=== PATIENT | male | born 1995 | race Caucasian/White ===

== ENCOUNTER 2020-04-02 04:26 | Emergency (ER) | payer OTHER, SELFPAY ==
--- NOTE | 2020-04-02 04:35 | ED.GENADULT ---
HPI - General Adult General Chief complaint: Nausea/Vomiting/Diarrhea Stated complaint: n/v x 24 hours Time Seen by Provider: 04/02/20 04:28 Source: RN notes reviewed History of Present Illness HPI narrative: Patient presents to the emergency department from home for nausea vomiting. Patient states he has been having persistent nausea vomiting for the past 24 hours he states he has been having nausea and vomiting in the mornings for the past 1 week. He denies having diarrhea he denies any fevers or chills chest pain shortness of breath abdominal pain or any other symptoms. States he did have a history as a child of having frequent nausea vomiting Review of Systems Review of Systems: Narrative: Gen.: Denies fevers or chills ENT: Denies congestion Respiratory: Denies shortness of breath or cough CV: Denies chest pain or palpitations GI: See HPI denies burning, urgency, frequency or hematuria Musculoskeletal: Denies back pain or muscle pain Neuro: Denies numbness, tingling, weakness or focal weakness Skin: Denies rash Except as documented, all other systems reviewed and negative [facility] Past Medical History Medical History (Updated 04/02/20 @ 06:44 by Jeronimo Moreno DO) Patient denies significant medical history Social History Social History (Updated 04/02/20 @ 04:36 by Jeronimo Moreno DO) Substance use type: marijuana Exam Narrative: Exam Narrative: APPEARANCE: No acute distress, nontoxic, resting in bed EYES: EOMI HEENT: Normocephalic, atraumatic, OMM RESPIRATORY: No respiratory distress Clear to auscultation bilaterally with no rhonchi wheezing or rales. CARDIOVASCULAR: Regular rate and rhythm without murmurs rubs or gallops. ABDOMINAL: Soft, nontender, nondistended, no rebound or guarding MUSCULOSKELETAl: Moves all extremities. No clubbing, cyanosis or edema. NEURO: Awake and alert. Following commands, speech normal, no focal deficits SKIN:: Warm, dry. No rashes lesions or abrasions PSYCHIATRIC: Normal affect/mood, Course Course Emergency Course: Patient feeling much better this time able to eat and drink in the ED with no emesis Patient states that they are feeling much better at this time. Repeat abdominal exam shows the patient's abdomen to be soft and nontender. Discussed with patient results of workup and diagnosis. Discussed need for follow-up with primary care physician, reasons to return to the emergency department in proper use of medication. Patient understands and agrees to current treatment plan. I discussed with the patient mildly elevated blood sugar discussed need for follow-up with his PCP patient did just recently see his PCP for anxiety was started on citalopram secondary to this we will send home with Phenergan instead of Zofran Vital Signs Vital signs: Vital Signs Temperature 98.1 F 04/02/20 05:02 Pulse Rate 57 L 04/02/20 05:02 Respiratory Rate 18 04/02/20 05:02 Blood Pressure 132/85 04/02/20 05:02 Pulse Oximetry 99 04/02/20 05:02 Temperature 98.1 F 04/02/20 05:02 Pulse Rate 77 04/02/20 05:35 Respiratory Rate 18 04/02/20 05:35 Blood Pressure 123/85 04/02/20 05:35 Pulse Oximetry 100 04/02/20 05:35 Medical Decision Making Vital Signs Vital Signs: Vital Signs Temperature 98.1 F 04/02/20 05:02 Pulse Rate 57 L 04/02/20 05:02 Respiratory Rate 18 04/02/20 05:02 Blood Pressure 132/85 04/02/20 05:02 Pulse Oximetry 99 04/02/20 05:02 Temperature 98.1 F 04/02/20 05:02 Pulse Rate 77 04/02/20 05:35 Respiratory Rate 18 04/02/20 05:35 Blood Pressure 123/85 04/02/20 05:35 Pulse Oximetry 100 04/02/20 05:35 Lab Data Result diagrams: 04/02/20 04:39 04/02/20 04:39 Labs: Lab Results 04/02/20 04/02/20 04/02/20 Range/Units 04:39 04:39 06:22 WBC 13.1 H (4.5-10.0) K/mm3 RBC 5.96 (4.6-6.20) M/mm3 Hgb 17.4 (14.0-18.0) g/dL Hct 50.1 (42.0-52.0) % MCV 84.1 (80-100) fl
[2020-04-02 04:50] LABS: Basophils Percent Auto 0.2 % (0.2-1.2); Hematocrit 50.1 % (42.0-52.0); Hemoglobin 17.4 g/dL (14.0-18.0); Immature Granulocyte Absolute 0.04 K/mm3 (0.00-0.031); Immature Granulocyte Percent A 0.3 % (0-0.5); Lymphocytes Absolute Auto 1.01 K/mm3 (0.9-3.2); Lymphocytes Percent Auto 7.7 % (18.3-44.2); Mean Corpuscular HGB Conc 34.7 g/dl (32-36); Mean Corpuscular Hemoglobin 29.2 pg (26-34); Mean Corpuscular Volume 84.1 fl (80-100); Monocytes Absolute Auto 0.4 K/mm3 (0.1-0.6); Monocytes Percent Auto 3.4 % (2.6-8.5); Neutrophils Absolute Auto 11.6 K/mm3 (1.3-6.7); Neutrophils Percent Auto 88.4 % (45.5-73.1); Platelet Count Result 269 k/mm3 (150-375); Red Blood Count 5.96 M/mm3 (4.6-6.20); Red Cell Distribution Width 12.7 % (11.5-14.5); White Blood Count 13.1 K/mm3 (4.5-10.0)
[2020-04-02 05:02] VITALS: BP 132/85; PULSE 57; RESP 18; TEMP 36.7; O2SAT 99
[2020-04-02 05:05] LABS: Alanine Aminotransferase 40 U/L (4-50); Albumin Level 4.8 g/dL (3.5-5.1); Alkaline Phosphatase 59 U/L (38-126); Anion Gap 12 mmol/L (8-16); Aspartate Amino Transferase 27 U/L (17-59); Bilirubin,Total 0.9 mg/dL (0.2-1.3); Blood Urea Nitrogen 10 mg/dL (9-20); Calcium 9.9 mg/dL (8.4-10.2); Carbon Dioxide 32 mmol/L (22-30); Chloride 100 mmol/L (98-107); Estimated Glomerular Filt Rate > 60; Glucose 162 mg/dL (75-110); Lipase 21 U/L (23-300); Potassium 3.5 mmol/L (3.4-5.0); Sodium 144 mmol/L (137-145)
[2020-04-02] MEDS: PANTOPRAZOLE SODIUM IV 40 MG VIAL IV PUSH (05:08)
[2020-04-02] MEDS: ONDANSETRON INJ 4 MG/2 ML VIAL IV PUSH (05:08)
[2020-04-02] MEDS: SODIUM CHLORIDE 0.9% IV 1,000 ML 999 ML IV CONT ×2 (05:08→05:34)
[2020-04-02 05:35] VITALS: BP 123/85; PULSE 77; RESP 18; O2SAT 100
[2020-04-02 06:39] LABS: Add Urine Microscopic? YES; Appearance Urine Clear (Clear); Bacteria Urine Trace /hpf; Bilirubin Urine Negative (Negative); Blood Urine Negative (Negative); Color Urine Yellow (Yellow); Glucose Urine UA Negative (Negative); Ketones Urine 2+ mg/dL (Negative); Leukocyte Esterase Ur Negative LEU/UL (Negative); Mucus Urine Heavy /lpf; Nitrate Urine Negative (Negative); Protein Urine 2+ mg/dL (Negative); Specific Grav Ur 1.033 (1.001-1.035); WBC Urine 0-3 /hpf
--- NOTE | 2020-04-09 21:30 | PC.NURSE ---
LATE ENTRY This note is being entered to document information to the patient's record. The following information was omitted on [], by ns stop @ [id number]].
== END 2020-04-02 07:00 | disposition home or self-care (01) ==
PROVIDERS: Emergency Provider Emergency Medicine
DX: R11.2 Nausea with vomiting, unspecified (principal)
CPT/HCPCS: 36415; 80053; 81001; 83690; 85025; 96374; 96375; 99284; C9113; J2405; J7030